=== PATIENT | female | born 1990 | race Caucasian/White ===

== ENCOUNTER 2016-06-26 10:45 | Emergency (ER) | payer OTHER ==
[2016-06-26 11:05] VITALS: BP 113/69
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
== END 2016-06-26 12:05 | disposition home or self-care (01) ==
LOC: UCEAST 10:45
DX: S46.912A Strain of unspecified muscle, fascia and tendon at shoulder and upper arm level, left arm, initial encounter (principal); M25.512 Pain in left shoulder; Y04.2XXA Assault by strike against or bumped into by another person, initial encounter; Y93.9 Activity, unspecified; Y92.9 Unspecified place or not applicable; Y99.9 Unspecified external cause status; M32.9 Systemic lupus erythematosus, unspecified
CPT/HCPCS: 72050; 99213; G0463

== ENCOUNTER 2018-05-06 22:03 | Inpatient (IN) | payer OTHER ==
--- NOTE | 2018-05-07 01:09 | HP ---
General Information - Reason for Visit Labor - General Information Maternal Age: 27 Grav: 3 Para: 2 SAB: 0 IEA: 0 Estimated Due Date: 05/14/18 Determined By: LMP Maternal Blood Type and Rh: B Positive - Results this Serology/RPR Result: Non-Reactive Rubella Result: Immune HBsAg Result: Negative HIV Result: Negative GBS Culture Result: Negative Past Medical History Delivery History: See Records Pertinent Past Medical History: See Records Pertinent Past Surgical History: See Records Pertinent Family History: See Records - Antepartal Records Antepartal Records: Reviewed, Complicated by: - Lupus Review of Systems Constitutional: Uncomfortable CV Complaint: No Respiratory: Shortness of Breath: No Gastrointestinal: No Nausea/Vomiting Genitourinary: Leaking Fluid Musculoskeletal: No Complaint Neurological: No Headache Movement: Normal Exam Allergies/Adverse Reactions: Allergies MS Latex [Latex] Allergy (Verified 05/06/18 22:51) Rash And Itching Lab Values - Entire Visit: Laboratory Tests 05/06/18 22:30 Vag Amniotic Fld Detect Positive - Measurements Height: 4 ft 11 in Weight: 134 lb Weight in lbs: [id number] Body Mass Index (BMI): 27.0 Pre- Weight: 120 lb Weight Gained This : 14 lbs and 0 ozs - Exam Breast: Breast Exam Deferred CVA: No CVA Tenderness Extremities: No Edema Heart: Normal Rhythm/Heart Sounds HEENT: No Significant Findings Lungs: Clear Bilaterally Rectal: Rectal Exam Deferred Reflexes: DTR 2+ Thyroid: No Thyromegaly - Abdominal Exam Abdomen Exam: Non-Tender - Ultrasound/Biophysical Profile Ultrasound Status: Not Done Targeted Exam Findings Cervical Exam: 7cm Effacement: 90% Station: 0 Presenting Part: Vertex Membrane Status: SROM Amniotic Fluid Evaluation: Positive ROM Plus EFM Findings - External Monitor Findings Baseline Heart Rate: 140 External Monitor Findings: Accelerations Present, No Pattern of Variable or Late Decelerations, Variability Moderate Contractions: Regular - 2' Assessment/Plan - Assessment Labor active desires natural - Plan Plan: Admit - Anticipate Vaginal Delivery
[2018-05-07] MEDS ORDERED: Acetaminophen TAB* 325 MG PO PRN (02:29)
[2018-05-07] MEDS ORDERED: Glycerin ADULT SUPP PR PRN (02:29)
[2018-05-07] MEDS ORDERED: Dibucaine 1% 28.35 GM TUBE PR PRN (02:29)
[2018-05-07] MEDS ORDERED: Witch Hazel PAD* JAR TOPICAL PRN (02:29)
[2018-05-07] MEDS ORDERED: Ibuprofen TAB* 600 MG PO PRN (02:29)
[2018-05-07] MEDS ORDERED: OXYTOCIN* 10 UNITS/ML 1 ML VIAL IM ONE (02:29)
[2018-05-07] MEDS ORDERED: OXYTOCIN* 10 UNITS/ML 1 ML VIAL ONE (02:42)
[2018-05-07] MEDS ORDERED: Simethicone TAB* 80 MG TAB.CHEW PO SCH (08:30)
[2018-05-07] MEDS: Docusate CAP* 100 MG PO SCH ×3 (09:16→21:06)
--- NOTE | 2018-05-07 09:36 | PROCNOTE ---
[facility] OB: Delivery Note - Delivery A Date of : 05/07/18 Time of : 01:37 [place] Sex: Male Weight at : 6 lb 1 oz Score 1 Minute: 8 Score 5 Minutes: 9 Gestational Age in Weeks and Days at Delivery: 39 Weeks and 0 Days Delivery Method: Spontaneous Vaginal Labor: Spontaneous Did Patient attempt ?: N/A, No Previous Amniotic Fluid: Clear Estimated Blood Loss: 200 Anesthesia/Analgesia: None Delivered By: Leyla Leyva - Nursery Level of Nursery: Regular/Bedside - Perineum Perineal Injury: None/Intact - Events Delivery Events of Note: Pitocin Only After Delivery
[2018-05-07] MEDS: Hydroxychloroquine TAB* 200 MG PO SCH ×2 (09:47→21:06)
[2018-05-07] MEDS: predniSONE TAB* 5 MG PO SCH (09:47)
[2018-05-07] MEDS ORDERED: Ibuprofen ADULT LIQ* 600 MG/30 ML UDC ONE (20:13)
[2018-05-07] MEDS ORDERED: Ibuprofen ADULT LIQ* 600 MG/30 ML UDC PO PRN (20:15)
[2018-05-07] MEDS ORDERED: Docusate LIQ* 100 MG/10 ML UDC PO SCH (21:00)
[2018-05-07] MEDS: Ibuprofen TAB* 600 MG PO PRN (21:07)
[2018-05-08] MEDS: Ibuprofen TAB* 600 MG PO PRN (04:32)
[2018-05-08 06:16] LABS: ABS Basophils 0 10^3/ul (0-0.2); ABS Eosinophils 0.1 10^3/ul (0-0.6); ABS Lymphocytes 2.7 10^3/ul (1.0-4.8); ABS Monocytes 1.3 10^3/ul (0-0.8); ABS Nucleated RBC 0 10^3/ul; Eosinophil % 0.3 % (0-6); Hematocrit 35 % (35-47); Hemoglobin 11.6 g/dl (12.0-16.0); Lymphocyte % 13.5 % (25-47); Mean Corpuscular HGB Conc 33 g/dl (31-36); Mean Corpuscular Hemoglobin 26 pg (27-31); Mean Corpuscular Volume 79 fL (80-97); Mean Platelet Volume 8.2 fL (7.4-10.4); Nucleated Red Blood Cells % 0; Platelet Count 215 10^3/ul (150-450); Red Blood Count 4.41 10^6/ul (4.00-5.40); Red Cell Distribution Width 15 % (10.5-15); White Blood Count 20.1 10^3/ul (3.5-10.8)
[2018-05-08] MEDS: predniSONE TAB* 5 MG PO SCH (08:30)
[2018-05-08] MEDS: Hydroxychloroquine TAB* 200 MG PO SCH (08:30)
[2018-05-08] MEDS: Docusate CAP* 100 MG PO SCH (08:30)
[2018-05-08] MEDS ORDERED: Ferrous Gluconate TAB* 324 MG TAB PO SCH (09:00)
[2018-05-08 09:27] VITALS: BP 109/74
== END 2018-05-08 13:58 | disposition home or self-care (01) | DRG 560 ==
LOC: MCHOBOUT 22:03 → MCHOB 23:55 → EEVIPCON 23:55 → MCHOB 05-07 04:15
PROVIDERS: ADMIT Obstetrics & Gynecology; ATTEND Obstetrics & Gynecology
PROC: 10E0XZZ Delivery of Products of Conception, External Approach (ICD-10-PCS; principal; 2018-05-06)
PROC: 4A1HXCZ Monitoring of Products of Conception, Cardiac Rate, External Approach (ICD-10-PCS; 2018-05-06)
DX: O80 Encounter for full-term uncomplicated delivery (principal); Z37.0 Single live birth; Z3A.39 39 weeks gestation of pregnancy; Z91.040 Latex allergy status
CPT/HCPCS: 36415; 84112; 85025; 88307; A9270-GY; J2590; J7512

== ENCOUNTER 2020-05-25 22:31 | Inpatient (IN) ==
[2020-05-25] MEDS ORDERED: Oxytocin in LR 20 UNITS/1,000 ML BAG IVPB ONE (23:07)
[2020-05-25 23:15] LABS: Hematocrit 35 % (35-47); Hemoglobin 11.5 g/dL (12.0-16.0); Mean Corpuscular HGB Conc 33 g/dL (31-36); Mean Corpuscular Hemoglobin 24 pg (27-31); Mean Corpuscular Volume 74 fL (80-97); Mean Platelet Volume 8.5 fL (7.4-10.4); Platelet Count 234 10^3/uL (150-450); Red Blood Count 4.72 10^6 /uL (3.70-4.87); Red Cell Distribution Width 15 % (10-15); White Blood Count 15.5 10^3/uL (3.5-10.8)
[2020-05-25 23:31] LABS: Urine Benzodiazepine Screen None Detected (None Detect); Urine Cannabinoids Screen None Detected (None Detect); Urine Opiates Screen None Detected (None Detect)
[2020-05-25] MEDS ORDERED: Oxytocin in LR 20 UNITS/1,000 ML BAG IVPB SCH (23:45)
[2020-05-25] MEDS ORDERED: Buffered Lidocaine 1% SYRIN 1 ml INTRADERM ONE (23:45)
[2020-05-25] MEDS ORDERED: Lactated Ringers 1000 ml BAG 1,000 ML IV ONE (23:45)
[2020-05-25] MEDS ORDERED: Lactated Ringers 1000 ml BAG 1,000 ML IV SCH ×2 (23:45)
[2020-05-25] MEDS ORDERED: Dibucaine 1% OINT 28.35 GM TUBE PR PRN (23:59)
[2020-05-25] MEDS ORDERED: Witch Hazel PAD JAR TOPICAL PRN (23:59)
[2020-05-25] MEDS ORDERED: Glycerin ADULT 2.4 gm SUPP PR PRN (23:59)
[2020-05-26 07:11] LABS: ABS Basophils 0.1 10^3/ul (0-0.2); ABS Lymphocytes 2.1 10^3/ul (1.0-4.8); ABS Neutrophils 13.8 10^3/ul (1.5-7.7); Eosinophil % 0.3 %; Hematocrit 31 % (35-47); Hemoglobin 10.2 g/dL (12.0-16.0); Lymphocyte % 12.1 %; Mean Corpuscular HGB Conc 33 g/dL (31-36); Mean Corpuscular Hemoglobin 24 pg (27-31); Mean Corpuscular Volume 74 fL (80-97); Mean Platelet Volume 8.2 fL (7.4-10.4); Platelet Count 219 10^3/uL (150-450); Red Blood Count 4.24 10^6 /uL (3.70-4.87); Red Cell Distribution Width 15 % (10-15)
[2020-05-27 07:18] VITALS: BP 119/84
== END 2020-05-27 17:30 | disposition home or self-care (01) | DRG 560 ==
LOC: MCHOBOUT 22:31 → MCHOB 22:45
PROVIDERS: ADMIT Obstetrics & Gynecology; ATTEND Obstetrics & Gynecology